=== PATIENT | female | born 1995 | race Caucasian/White ===

== ENCOUNTER 2018-12-12 10:51 | Inpatient (IN) | payer MEDICAID, OTHER ==
[~2018-12-12] VITALS: Ht 154.9 cm; Wt 51.7 kg
[2018-12-12] MEDS ORDERED: KETOROLAC 30MG/ML VIAL IV STA (12:40)
[2018-12-12] MEDS ORDERED: SODIUM CHLORIDE 0.9% 1000ML BAG (SEPSIS BOLUS) IV ONE (12:45)
[2018-12-12 13:11] LABS: HEMATOCRIT. 34.3 % (36.0-48.0); HEMOGLOBIN. 11.9 g/dL (12.0-16.0); MEAN CORPUSCULAR HEMOGLOBIN 29.7 pg (28.0-32.0); MEAN PLATELET VOLUME 9.4 fl (7.4-10.4); PLATELET 110 x1000/uL (130-400); RED BLOOD CELL COUNT 3.99 mill/uL (4.2-5.4); RED CELL DISTRIBUTION WIDTH 11.9 % (11.6-14.6)
[2018-12-12 13:12] LABS: CLARITY URINE CLOUDY (CLEAR); COLOR URINE ORANGE (YELLOW); KETONES URINE 4+ (NEGATIVE); LEUKOCYTE ESTERASE URINE 1+ (NEGATIVE); NITRITE URINE NEGATIVE (NEGATIVE); OCCULT BLOOD URINE 1+ (NEGATIVE); PROTEIN URINE 2+ (NEGATIVE); SPECIFIC GRAVITY URINE 1.028 (1.005-1.030)
[2018-12-12 13:20] LABS: CHLORIDE 104 mEq/L (98-107); PARTIAL THROMBOPLASTIN TIME 34.8 sec (23.4-31.0); PROTHROMBIN TIME 10.2 sec (9.6-11.0)
[2018-12-12 13:38] LABS: ATYPICAL LYMPHOCYTES 2; PLATELET ESTIMATE SLIGHTLY DECREASED
[2018-12-12] MEDS ORDERED: LEVOFLOXACIN 750MG PREMIX 150 ML IV ONE (14:00)
[2018-12-12] MEDS ORDERED: IOHEXOL-300 100 ML BOTTLE ONE (18:55)
[2018-12-12 20:00] VITALS: BP 104/60
[2018-12-12] MEDS ORDERED: ONDANSETRON HCL 4MG/2ML INJ IV PRN (21:00)
[2018-12-12] MEDS ORDERED: ACETAMINOPHEN 325MG TABLET PO PRN (21:00)
[2018-12-12] MEDS ORDERED: DIPHENHYDRAMINE 50MG/ML VIAL IV PRN (21:00)
[2018-12-12] MEDS ORDERED: MAGNESIUM/ALUMINUM HYDROXIDE/SIMETHICONE 30ML UDC PO PRN (21:00)
[2018-12-12] MEDS ORDERED: LEVOFLOXACIN 500MG PREMIX 100 ML IV SCH (21:00)
[2018-12-12] MEDS: FAMOTIDINE 20MG/2ML VIAL IV SCH (22:15)
[2018-12-12] MEDS: SODIUM CHLORIDE 0.9% 1,000 ML IV SCH (22:15)
[2018-12-13] VITALS (8 sets, daily range): BP systolic 92–117; BP diastolic 49–72
[2018-12-13] MEDS: KETOROLAC 30MG/ML VIAL IV PRN ×2 (04:01→11:48)
[2018-12-13 07:56] LABS: HEMATOCRIT. 29.1 % (36.0-48.0); MEAN CORPUSCULAR HEMOGLOBIN 29.7 pg (28.0-32.0); MEAN PLATELET VOLUME 9.3 fl (7.4-10.4); PLATELET 96 x1000/uL (130-400); RED BLOOD CELL COUNT 3.39 mill/uL (4.2-5.4); RED CELL DISTRIBUTION WIDTH 11.9 % (11.6-14.6)
[2018-12-13 08:02] LABS: CHLORIDE 117 mEq/L (98-107)
[2018-12-13] MEDS: SODIUM CHLORIDE 0.9% 1,000 ML IV SCH (09:14)
[2018-12-13] MEDS: FAMOTIDINE 20MG/2ML VIAL IV SCH ×2 (09:14→20:47)
[2018-12-13] MEDS ORDERED: METHYLPREDNISOLONE SOD SUCC 125 MG/2 ML VIAL IV SCH (12:00)
[2018-12-13 14:29] LABS: PLATELET ESTIMATE DECREASED
[2018-12-13] MEDS: LEVOFLOXACIN 500MG PREMIX 100 ML IV SCH (17:56)
[2018-12-14] VITALS: BP 104/66
[2018-12-14 04:00] VITALS: BP 103/59
[2018-12-14 08:00] VITALS: BP 112/65
[2018-12-14 08:07] LABS: COMPLEMENT C3 23 mg/dL (82-167)
[2018-12-14] MEDS: FAMOTIDINE 20MG/2ML VIAL IV SCH ×2 (10:44→21:13)
[2018-12-14 12:00] VITALS: BP 103/68
[2018-12-14 16:00] VITALS: BP 102/67
[2018-12-14 20:00] VITALS: BP 93/53
[2018-12-14] MEDS: LEVOFLOXACIN 500MG PREMIX 100 ML IV SCH (21:13)
[2018-12-14] MEDS: METHYLPREDNISOLONE SOD SUCC 125 MG/2 ML VIAL IV SCH (23:58)
[2018-12-15] VITALS: BP 101/56
[2018-12-15] MEDS: HYDROCORTISONE 2.5% CREAM 20GM TOP SCH ×2 (00:30→20:59)
[2018-12-15 04:00] VITALS: BP 111/72
[2018-12-15] MEDS: METHYLPREDNISOLONE SOD SUCC 125 MG/2 ML VIAL IV SCH ×4 (06:20→22:57)
[2018-12-15 08:00] VITALS: BP 115/71
[2018-12-15] MEDS: HYDROXYCHLOROQUINE SULFATE 200MG TABLET PO SCH ×2 (10:02→17:17)
[2018-12-15] MEDS: FOLIC ACID 1MG TABLET PO SCH (10:02)
[2018-12-15] MEDS: DICLOFENAC SODIUM 75MG DR (EC) TABLET PO SCH ×2 (10:02→20:58)
[2018-12-15] MEDS: FAMOTIDINE 20MG/2ML VIAL IV SCH ×2 (10:03→20:58)
[2018-12-15] MEDS: METHOTREXATE SODIUM 2 . 5MG TABLET PO SCH ×3 (10:03→20:58)
[2018-12-15 12:00] VITALS: BP 110/73
[2018-12-15 16:00] VITALS: BP 103/61
[2018-12-15] MEDS: LEVOFLOXACIN 500MG PREMIX 100 ML IV SCH (17:16)
[2018-12-15 19:26] LABS: BASOPHILS % 0.2 % (0.0-2.0); HEMATOCRIT. 33.3 % (36.0-48.0); HEMOGLOBIN. 11.4 g/dL (12.0-16.0); LYMPHOCYTES % 21.4 % (20.0-50.0); MEAN CORPUSCULAR HEMOGLOBIN 29.2 pg (28.0-32.0); MEAN CORPUSCULAR VOLUME 85.5 fL (81.0-99.0); MEAN PLATELET VOLUME 9.9 fl (7.4-10.4); MONOCYTES % 7.3 % (2.0-8.0); NEUTROPHILS % 71.1 % (40.0-76.0); PLATELET 167 x1000/uL (130-400); RED BLOOD CELL COUNT 3.89 mill/uL (4.2-5.4); RED CELL DISTRIBUTION WIDTH 12.2 % (11.6-14.6)
[2018-12-15 20:00] VITALS: BP 101/61
[2018-12-16] VITALS: BP 124/78
[2018-12-16 04:00] VITALS: BP 116/68
[2018-12-16] MEDS: METHYLPREDNISOLONE SOD SUCC 125 MG/2 ML VIAL IV SCH ×3 (05:24→18:01)
[2018-12-16 08:00] VITALS: BP 107/65
[2018-12-16] MEDS: FOLIC ACID 1MG TABLET PO SCH (08:40)
[2018-12-16] MEDS: DICLOFENAC SODIUM 75MG DR (EC) TABLET PO SCH (08:40)
[2018-12-16] MEDS: FAMOTIDINE 20MG/2ML VIAL IV SCH (08:40)
[2018-12-16] MEDS: HYDROXYCHLOROQUINE SULFATE 200MG TABLET PO SCH ×2 (08:40→16:18)
[2018-12-16 09:10] LABS: G6PD RBC 3.85 x10E6/uL (3.77-5.28)
[2018-12-16 12:00] VITALS: BP 114/71
[2018-12-16 13:06] LABS: G6PD QUANTITATIVE 311 (146-376)
[2018-12-16 16:00] VITALS: BP 112/74
[2018-12-16] MEDS: LEVOFLOXACIN 500MG PREMIX 100 ML IV SCH (16:18)
[2018-12-16 17:06] LABS: RNP ANTIBODY > 8.0 AI (0.0-0.9); SMITH ANTIBODY > 8.0 AI (0.0-0.9)
[2018-12-16 17:45] VITALS: BP 112/74
[2018-12-17 09:06] LABS: ANGIOTENSION CONVERTING ENZYME 79 U/L (14-82); DRVVT LA 59.3 sec (0.0-47.0); PTT-LA 35.5 sec (0.0-51.9)
[2018-12-17 15:06] LABS: ANTI-CARDIOLIPIN AB IGA < 9 APL U/mL (0-11); ANTI-CARDIOLIPIN AB IGG 24 GPL U/mL (0-14); ANTI-CARDIOLIPIN AB IGM 36 MPL U/mL (0-12)
[2018-12-17 17:10] LABS: ANTI-MYELOPEROXIDASE AB < 9.0 U/mL (0.0-9.0); ANTI-PROTEINASE 3 ABS < 3.5 U/mL (0.0-3.5); DRVVT LA CONFIRMATION 1.8 ratio (0.8-1.2); DRVVT MIX LA 66.4 sec (0.0-47.0)
[2018-12-17 19:06] LABS: LUPUS ANTICOAG INTERPRETATION Comment: (.)
[2018-12-19 15:10] LABS: ANA IFA Negative (.)
[2018-12-20 13:06] LABS: ATYPICAL P-ANCA <1:20 titer (Neg:<1:20); CYTOPLASMIC C-ANCA <1:20 titer (Neg:<1:20)
== END 2018-12-16 18:30 | disposition home or self-care (01) | DRG 346 ==
LOC: ER 10:51 → 5WST 18:17 → ENRESERV 18:31
PROVIDERS: ADMIT Internal Medicine; ATTEND Internal Medicine
DX: M32.9 Systemic lupus erythematosus, unspecified (principal); J18.9 Pneumonia, unspecified organism; D69.6 Thrombocytopenia, unspecified; M31.8 Other specified necrotizing vasculopathies; D58.9 Hereditary hemolytic anemia, unspecified; N13.6 Pyonephrosis; Z88.1 Allergy status to other antibiotic agents; R80.9 Proteinuria, unspecified; M13.0 Polyarthritis, unspecified; R21 Rash and other nonspecific skin eruption; F32.9 Major depressive disorder, single episode, unspecified; M32.13 Lung involvement in systemic lupus erythematosus; Z83.3 Family history of diabetes mellitus
CPT/HCPCS: 36415; 71045; 74177; 76700; 81003; 82164; 82955; 83520; 83605; 83735; 84100; 84156; 85041; 85613; 85651; 85732; 86038; 86147; 86160; 86225; 86235; 86256; 86592; 86780; 86880; 93005; 96361; 96365; 96366; 96375; 99285; J1885; J1956; J2930; J3490; J7030; J8610; Q9967